=== PATIENT | male | born 1980 | race Caucasian/White ===

== ENCOUNTER → 2024-09-20 | Outpatient (CLI) | payer BC ==
--- NOTE | 2024-09-20 13:08 | CA ---
Stress Echo Report Roger Rock Age: 44 Gender: M : 1980 Exam Date: 09/20/2024 10:21 Exam Location: [facility] Ht (in): 67 Wt (lb): 210 Ordering Physician: Roger Bergeron MD Referring Physician: Roger Bergeron MD [employer] Tender: JULIANE Technologist Procedure CPT: Indication: R00.2 palpitations ICD-9 Codes: Rhythm: Patient History: PALPS, HTN, ASTHMA. Cardiac Medications: VIVAN,,,,,, CHLORTHALIDONE,,,,,, BENAPHIL,,,,,, VENTOLIN,,,,, Medications in past 24 hours: Contrast: Stress Results Protocol: Truman Total dose(mL): Exercise Duration (min:sec): Max ST Depression (mm): Angina Score: Adan Score: METS: 12.1 Resting HR: 87 Resting BP: 123 / 93 Peak HR: 157 Peak BP: 180 / 75 Max Predicted HR: 174 90 % Max Predicted HR Target HR: 148 Double Product: 00321 Stress Summary: The patient's target heart rate was achieved BP Response: Normal Reason for Termination: MAX EXERTION/TARGET HR Cardiac Symptoms: NO SYMPTOMS ECG Analysis Resting ECG: Normal sinus rhythm, normal ECG Stress ECG: No abnormal ST/T wave changes with exercise Arrhythmia: None Echo Analysis Resting Echo: Normal resting echocardiogram. Peak Echo Analysis: Normal wall thickening and motion with decrease in the cavity size MEASUREMENTS (Male/Female) Normal Values CONCLUSIONS No ECG evidence of ischemia with exercise. Normal treadmill stress echocardiogram. Dr. Flako Vásquez MD (Electronically Signed) Final Date: 20 September 2024 13:07
== END | disposition home or self-care (01) ==
LOC: RADNMMAIN 09:49
PROVIDERS: ATTEND Family Medicine
DX: J45.909 Unspecified asthma, uncomplicated (principal); R00.2 Palpitations; I10 Essential (primary) hypertension
CPT/HCPCS: 93351; Q9957